=== PATIENT | female | born 1945 | race Two or more races ===

== ENCOUNTER 2018-01-16 13:33 | Outpatient (CLI) | payer OTHER ==
[~2018-01-16 13:33] MED LIST: COZAAR25 MG; Flagyl PO; LEVSIN0.125 MG PO; NORVASC2.5 M1; PEPCID40 MG PO; PROTONIX40 MG PO; SIMVASTATIN1 GM; VANCOCIN HCL; ZANTAC300 MG PO; ZOFRAN4 MG PO
== END 2018-01-16 13:36 | disposition home or self-care (01) ==
LOC: SONOGRAMA 13:33
DX: N18.3 Chronic kidney disease, stage 3 (moderate) (principal)

== ENCOUNTER 2018-03-27 16:16 | Emergency (ER) | payer OTHER ==
[~2018-03-27] VITALS: Ht 162.6 cm; Wt 60.3 kg
[2018-03-27] MEDS ORDERED: KETO10TA2 PO (19:18)
[2018-03-31] MEDS ORDERED: COZAAR100 MG (21:46)
[2018-03-31] MEDS ORDERED: ADDERALL 20 MG20 MG (21:46)
== END 2018-03-27 20:09 ==
LOC: ER 16:16
DX: S62.612A Displaced fracture of proximal phalanx of right middle finger, initial encounter for closed fracture (principal); W18.39XA Other fall on same level, initial encounter; Y93.89 Activity, other specified; Y92.89 Other specified places as the place of occurrence of the external cause; Y99.8 Other external cause status

== ENCOUNTER → 2018-03-31 | Emergency (ER) | payer OTHER ==
[~2018-03-31] VITALS: Ht 162.6 cm; Wt 60.3 kg
[~2018-03-31] MED LIST changes: +ADDERALL 20 MG20 MG; +COZAAR100 MG; +KETO10TA2 PO
== END | disposition left against medical advice (07) ==
LOC: ER 21:34
DX: Z53.20 Procedure and treatment not carried out because of patient's decision for unspecified reasons (principal)

== ENCOUNTER 2018-04-30 16:42 | Emergency (ER) | payer OTHER ==
[~2018-04-30] VITALS: Ht 157.5 cm; Wt 59.0 kg
== END 2018-04-30 22:16 | disposition home or self-care (01) ==
LOC: ER 16:42
DX: R42 Dizziness and giddiness (principal)

== ENCOUNTER 2018-06-30 13:50 | Outpatient (CLI) | payer OTHER | END 2018-06-30 13:53 | disposition home or self-care (01) | LOC: RAD 13:50 | DX: M54.5 Low back pain (principal); I70.0 Atherosclerosis of aorta ==

== ENCOUNTER 2018-12-23 11:43 | Outpatient (CLI) | payer OTHER | END 2018-12-27 11:47 | disposition home or self-care (01) | LOC: RX STUDY 11:43 | DX: K59.01 Slow transit constipation (principal) ==

== ENCOUNTER 2019-02-05 15:05 | Outpatient (CLI) | payer OTHER | END 2019-02-05 15:12 | disposition home or self-care (01) | LOC: MAMO-SONO 15:05 | DX: N64.4 Mastodynia (principal); Z12.31 Encounter for screening mammogram for malignant neoplasm of breast ==

== ENCOUNTER → 2019-08-04 | Outpatient (CLI) | payer OTHER | END | disposition home or self-care (01) | LOC: RAD 12:38 | DX: Z20.89 Contact with and (suspected) exposure to other communicable diseases (principal); J09.X2 Influenza due to identified novel influenza A virus with other respiratory manifestations ==

== ENCOUNTER 2019-08-06 11:37 | Outpatient (CLI) | payer OTHER | END 2019-08-06 11:45 | disposition home or self-care (01) | LOC: NUCLEAR 11:37 | PROVIDERS: ATTEND Internal Medicine | DX: M54.5 Low back pain (principal); E03.8 Other specified hypothyroidism; I10 Essential (primary) hypertension; E78.89 Other lipoprotein metabolism disorders; E11.51 Type 2 diabetes mellitus with diabetic peripheral angiopathy without gangrene; E55.9 Vitamin D deficiency, unspecified; E11.9 Type 2 diabetes mellitus without complications; R05 Cough; R50.9 Fever, unspecified; Z20.828 Contact with and (suspected) exposure to other viral communicable diseases; Z03.818 Encounter for observation for suspected exposure to other biological agents ruled out; K57.30 Diverticulosis of large intestine without perforation or abscess without bleeding ==

== ENCOUNTER 2019-11-11 08:28 | Outpatient (CLI) | payer OTHER | END 2019-11-11 08:43 | disposition home or self-care (01) | LOC: TOM 08:28 | PROVIDERS: ATTEND Internal Medicine Gastroenterology | DX: K57.30 Diverticulosis of large intestine without perforation or abscess without bleeding (principal); K58.1 Irritable bowel syndrome with constipation; K56.600 Partial intestinal obstruction, unspecified as to cause; Z86.010 Personal history of colon polyps ==

== ENCOUNTER 2020-04-14 14:44 | Outpatient (CLI) | payer OTHER | END 2020-04-14 15:06 | disposition home or self-care (01) | LOC: TOM 14:44 | PROVIDERS: ATTEND Internal Medicine Gastroenterology | DX: K44.9 Diaphragmatic hernia without obstruction or gangrene (principal); J98.11 Atelectasis; Z87.891 Personal history of nicotine dependence; R05 Cough ==

== ENCOUNTER → 2020-05-03 | Outpatient (CLI) | payer OTHER | END | disposition home or self-care (01) | LOC: TOM 11-04 08:15 → RAD 12:48 | PROVIDERS: ATTEND Orthopaedic Surgery | DX: M54.5 Low back pain (principal); M20.11 Hallux valgus (acquired), right foot; M20.12 Hallux valgus (acquired), left foot; M25.571 Pain in right ankle and joints of right foot; Z76.89 Persons encountering health services in other specified circumstances ==

== ENCOUNTER 2020-06-20 13:12 | Outpatient (CLI) | payer OTHER | END 2020-06-20 13:15 | disposition home or self-care (01) | LOC: NUCLEAR 13:12 | PROVIDERS: ATTEND Orthopaedic Surgery | DX: M81.0 Age-related osteoporosis without current pathological fracture (principal) ==

== ENCOUNTER 2020-07-26 17:25 | Emergency (ER) | payer OTHER ==
[~2020-07-26] VITALS: Ht 162.6 cm; Wt 63.5 kg
[2020-07-27] MEDS ORDERED: CIPRO500 MG PO (05:06)
[2020-07-27] MEDS ORDERED: LEVSIN/SL0.125 MG SL (05:06)
[2020-07-27] MEDS ORDERED: PHAZYME250 MG PO (05:06)
== END 2020-07-27 06:45 | disposition home or self-care (01) ==
LOC: ER 17:25
DX: N39.0 Urinary tract infection, site not specified (principal); B96.1 Klebsiella pneumoniae [K. pneumoniae] as the cause of diseases classified elsewhere; R10.32 Left lower quadrant pain

== ENCOUNTER 2020-08-03 14:00 | Emergency (ER) | payer OTHER ==
[~2020-08-03] VITALS: Ht 162.6 cm; Wt 63.5 kg
[~2020-08-03 14:00] MED LIST changes: +CIPRO500 MG PO; +LEVSIN/SL0.125 MG SL; +PHAZYME250 MG PO
[2020-08-03] MEDS ORDERED: METFORMIN HCL500 M4 PO (14:12)
[2020-08-03] MEDS ORDERED: OMEPRAZOLE40 MG PO (14:12)
[2020-08-03] MEDS ORDERED: LAMICTAL200 MG PO (14:12)
[2020-08-03] MEDS ORDERED: AMLODIPINE BESY10 MG PO (14:12)
[2020-08-03] MEDS ORDERED: CATAPRES0.3 MG PO (14:13)
== END 2020-08-03 21:30 | disposition home or self-care (01) ==
LOC: ER 14:00
DX: I95.89 Other hypotension (principal); E16.1 Other hypoglycemia; Z03.818 Encounter for observation for suspected exposure to other biological agents ruled out

== ENCOUNTER 2020-08-19 18:14 | Emergency (ER) | payer OTHER ==
[~2020-08-19] VITALS: Ht 162.6 cm; Wt 62.6 kg
[~2020-08-19 18:14] MED LIST changes: +AMLODIPINE BESY10 MG PO; +CATAPRES0.3 MG PO; +LAMICTAL200 MG PO; +METFORMIN HCL500 M4 PO; +OMEPRAZOLE40 MG PO
== END 2020-08-19 21:47 | disposition home or self-care (01) ==
LOC: ER 18:14
DX: I95.89 Other hypotension (principal); R42 Dizziness and giddiness

== ENCOUNTER 2022-02-06 15:10 | Emergency (ER) | payer OTHER ==
[~2022-02-06] VITALS: Ht 162.6 cm; Wt 63.5 kg
[2022-02-06] MEDS ORDERED: LITHIUM CARBON150 MG PO (15:35)
== END 2022-02-06 19:16 | disposition home or self-care (01) ==
LOC: ER 15:10
DX: R42 Dizziness and giddiness (principal); F32.9 Major depressive disorder, single episode, unspecified; I10 Essential (primary) hypertension; Z88.8 Allergy status to other drugs, medicaments and biological substances; Z88.1 Allergy status to other antibiotic agents

== ENCOUNTER 2022-06-22 09:39 | Emergency (ER) | payer OTHER ==
[~2022-06-22] VITALS: Ht 162.6 cm; Wt 61.2 kg
[~2022-06-22 09:39] MED LIST changes: +LITHIUM CARBON150 MG PO
[2022-06-22] MEDS ORDERED: BENZTROPINE ME0.5 MG (09:45)
[2022-06-22] MEDS ORDERED: DIVALPROEX SOD250 MG (09:45)
[2022-06-22] MEDS ORDERED: QUETIAPINE FUMA25 MG (09:45)
[2022-06-22] MEDS ORDERED: BUPROPION XL150 MG (09:46)
== END 2022-06-22 16:01 | disposition home or self-care (01) ==
LOC: ER 09:39
DX: R55 Syncope and collapse (principal); I10 Essential (primary) hypertension; J44.9 Chronic obstructive pulmonary disease, unspecified; F32.89 Other specified depressive episodes; K21.9 Gastro-esophageal reflux disease without esophagitis; Z88.8 Allergy status to other drugs, medicaments and biological substances

== ENCOUNTER 2022-07-05 14:53 | Inpatient (IN) | payer OTHER ==
[~2022-07-05] VITALS: Ht 162.6 cm; Wt 61.2 kg
[~2022-07-05 14:53] MED LIST changes: +BENZTROPINE ME0.5 MG; +BUPROPION XL150 MG; +DIVALPROEX SOD250 MG; +QUETIAPINE FUMA25 MG
--- NOTE | 2022-07-05 15:30 | NUR ---
SE RECIBE FEMINA ALERTA Y ORIENTADA EN AMBULANCIA ACOMPANADA POR PARAMEDICOS QUIENES REFIEREN PTE PRESENTA DEBILIDAD Y DOROTHY DOLOR ABDOMINAL. PTE SE OBSERVA PALIDA Y HABLANDO PESADO. SE MIDEN S/V. SE REALIZA EKG Y SE PRESENTA A DR MARQUEZ. SE COLOCA A PTE EN UNIDAD DE CRITICO.
--- NOTE | 2022-07-05 17:12 | NUR ---
PTE EVALUADO POR DR. DEUTSCH. SE ORIENTA PTE SOBRE TX A SEGUIR, EL CUAL REFIERE ENTENDER. SE COLECTAN MUESTRAS Y SE CANALIZA PTE UTILIZANDO MEDIDAS ASEPTICAS. PEND MUESTRA DE UA Y PEND CT ABD/PEL CON CONTRASTE PO. SE CONECTA A MONITOR CARDIACO Y OXIMETRIA DE PULSO CONTINUA.
[2022-07-06] MEDS ORDERED: ROSUVASTATIN CAL5 MG (11:01)
[2022-07-06] MEDS ORDERED: FAMOTIDINE40 MG (11:01)
[2022-07-06] MEDS ORDERED: OMEPRAZOLE40 MG (11:01)
[2022-07-06] MEDS ORDERED: VENLAFAXINE HC150 MG (11:01)
== END 2022-07-17 19:59 | disposition home or self-care (01) | DRG 371 ==
LOC: ER 14:53 → ICU-2 23:13 → MEDJ 23:13 → ICU 23:13 → MEDJ 07-07 14:05
PROVIDERS: ADMIT Internal Medicine; ATTEND Internal Medicine
PROC: BW21YZZ Computerized Tomography (CT Scan) of Abdomen and Pelvis using Other Contrast (ICD-10-PCS; principal; 2022-07-05)
PROC: 02HV33Z Insertion of Infusion Device into Superior Vena Cava, Percutaneous Approach (ICD-10-PCS; 2022-07-07)
PROC: 4A12X4Z Monitoring of Cardiac Electrical Activity, External Approach (ICD-10-PCS; 2022-07-07)
PROC: B24BZZZ Ultrasonography of Heart with Aorta (ICD-10-PCS; 2022-07-08)
PROC: BW21YZZ Computerized Tomography (CT Scan) of Abdomen and Pelvis using Other Contrast (ICD-10-PCS; 2022-07-09)
DX: A04.72 Enterocolitis due to Clostridium difficile, not specified as recurrent (principal); A41.9 Sepsis, unspecified organism; N17.9 Acute kidney failure, unspecified; K56.600 Partial intestinal obstruction, unspecified as to cause; I47.1 Supraventricular tachycardia; E87.20 Acidosis, unspecified; N39.0 Urinary tract infection, site not specified; E86.0 Dehydration; I12.9 Hypertensive chronic kidney disease with stage 1 through stage 4 chronic kidney disease, or unspecified chronic kidney disease; N18.9 Chronic kidney disease, unspecified; E87.6 Hypokalemia; K44.9 Diaphragmatic hernia without obstruction or gangrene

== ENCOUNTER 2022-07-22 16:54 | Inpatient (IN) | payer OTHER ==
[~2022-07-22] VITALS: Ht 162.6 cm; Wt 61.2 kg
[~2022-07-22 16:54] MED LIST changes: +FAMOTIDINE40 MG; +OMEPRAZOLE40 MG; +ROSUVASTATIN CAL5 MG; +VENLAFAXINE HC150 MG
--- NOTE | 2022-07-22 17:11 | NUR ---
SE RECIBE PACIENTE EN AMBULANCIA LA MISMA SE ENCUENTRA ALERTA Y ORIENTADA X3, PACIENTE VERBALIZA QUE ES TRASFERIDA DE SAMI Y ACEPTADA POR DR DEUTSCH CON DX DE CHF. AL MONITOREAR S/V SE OBSERVA PACIENTE CON DXT EN 42MG/DL. SE CANALIZA PACIENTE Y LE ADMINISTRA HIPERTONICA. DR PHILLIPS ORDENA UBICAR PACIENTE EN POLI Y CONECTAR A MONITOR CARDIACO, SE EJECUTA ORDEN MEDICA.
--- NOTE | 2022-07-22 17:44 | NUR ---
SE EJECUTA ORDEN MEDICA SE VANESSA MUESTRA BAJO MEDIDAS ASEPTICA SE CANALIZA, SE ORIENTA PTE/FAMILIAR SOBRE PROCEDIEMIENTO REALIZADOS PTE REFIERE ENTENDER. SE COLOCA SMILEY, SE OBSERVA PATENTE Y ELIMINADO COLOR AMARILLO INTENSO. SE KARSTEN POSION COMADA.
--- NOTE | 2022-07-22 20:55 | NUR ---
SE LE ORIENTA A PACIENTE A NO COMER NADA, PARA REALIZAR CT ABDOMINAL + PELVICO CON CONTRASTE PO, OLIVER VERBALIZA QUE TIENE QUE COMER Y NO SE VA SNEHA CONTRASTE PO.
[2022-07-23] MEDS ORDERED: LITHIUM CARBON150 MG (08:47)
[2022-08-08] MEDS ORDERED: AMLODIPINE BESY10 MG PO (06:42)
[2022-08-08] MEDS ORDERED: XOPENEX0.63 MG/3 IH (06:42)
[2022-08-08] MEDS ORDERED: HYOSCYAMINE0.125 M1 SL (06:42)
[2022-08-08] MEDS ORDERED: COZAAR50 MG PO (06:43)
[2022-08-08] MEDS ORDERED: LOPRESSOR25 MG PO (06:43)
[2022-08-08] MEDS ORDERED: CHOLESTYRAMINE L4 GM PO (06:43)
== END 2022-08-08 15:20 | DRG 291 ==
LOC: ER 16:54 → SURG 22:59 → SURH 08-03 14:52
PROVIDERS: ADMIT Internal Medicine; ATTEND Internal Medicine
PROC: BB24ZZZ Computerized Tomography (CT Scan) of Bilateral Lungs (ICD-10-PCS; principal; 2022-07-22)
PROC: BW28ZZZ Computerized Tomography (CT Scan) of Head (ICD-10-PCS; 2022-07-22)
PROC: BW21ZZZ Computerized Tomography (CT Scan) of Abdomen and Pelvis (ICD-10-PCS; 2022-07-22)
PROC: B246ZZZ Ultrasonography of Right and Left Heart (ICD-10-PCS; 2022-07-22)
PROC: 02HV33Z Insertion of Infusion Device into Superior Vena Cava, Percutaneous Approach (ICD-10-PCS; 2022-07-23)
PROC: 3E0F7GC Introduction of Other Therapeutic Substance into Respiratory Tract, Via Natural or Artificial Opening (ICD-10-PCS; 2022-07-23)
PROC: 30233N1 Transfusion of Nonautologous Red Blood Cells into Peripheral Vein, Percutaneous Approach (ICD-10-PCS; 2022-07-24)
PROC: BU4CZZZ Ultrasonography of Uterus and Ovaries (ICD-10-PCS; 2022-07-29)
PROC: 0W993ZZ Drainage of Right Pleural Cavity, Percutaneous Approach (ICD-10-PCS; 2022-07-31)
PROC: 0W9B3ZZ Drainage of Left Pleural Cavity, Percutaneous Approach (ICD-10-PCS; 2022-08-01)
PROC: BW3GZZZ Magnetic Resonance Imaging (MRI) of Pelvic Region (ICD-10-PCS; 2022-08-02)
DX: I13.0 Hypertensive heart and chronic kidney disease with heart failure and stage 1 through stage 4 chronic kidney disease, or unspecified chronic kidney disease (principal); J18.9 Pneumonia, unspecified organism; I24.9 Acute ischemic heart disease, unspecified; I50.30 Unspecified diastolic (congestive) heart failure; J90 Pleural effusion, not elsewhere classified; N39.0 Urinary tract infection, site not specified; I47.1 Supraventricular tachycardia; I11.0 Hypertensive heart disease with heart failure; K57.90 Diverticulosis of intestine, part unspecified, without perforation or abscess without bleeding; D64.9 Anemia, unspecified; D72.828 Other elevated white blood cell count; D50.0 Iron deficiency anemia secondary to blood loss (chronic); E11.22 Type 2 diabetes mellitus with diabetic chronic kidney disease; N18.9 Chronic kidney disease, unspecified; K21.9 Gastro-esophageal reflux disease without esophagitis; K52.89 Other specified noninfective gastroenteritis and colitis; R41.82 Altered mental status, unspecified; Z87.891 Personal history of nicotine dependence; D25.0 Submucous leiomyoma of uterus; E86.0 Dehydration
CPT/HCPCS: 72198

== ENCOUNTER 2022-08-13 13:00 | Inpatient (IN) | payer OTHER ==
[~2022-08-13] VITALS: Ht 162.6 cm; Wt 63.5 kg
[~2022-08-13 13:00] MED LIST changes: +CHOLESTYRAMINE L4 GM PO; +COZAAR50 MG PO; +HYOSCYAMINE0.125 M1 SL; +LITHIUM CARBON150 MG; +LOPRESSOR25 MG PO; +XOPENEX0.63 MG/3 IH
[2022-08-23] MEDS ORDERED: XOPENEX0.63 MG/3 IH (07:31)
[2022-08-23] MEDS ORDERED: LOVENOX40 MG/0.4 SUBCUTANEO (07:31)
[2022-08-23] MEDS ORDERED: HYOSCYAMINE0.125 M1 SL (07:31)
[2022-08-23] MEDS ORDERED: WELLBUTRIN SR150 MG PO (07:32)
[2022-08-23] MEDS ORDERED: COZAAR50 MG PO (07:32)
== END 2022-08-24 13:31 | disposition home or self-care (01) | DRG 872 ==
LOC: ER 13:00 → SURG 18:57 → SEC-K 18:57 → SURG 20:38
PROVIDERS: ADMIT Internal Medicine; ATTEND Internal Medicine
PROC: 02HV33Z Insertion of Infusion Device into Superior Vena Cava, Percutaneous Approach (ICD-10-PCS; 2022-08-14)
PROC: 4A12X4Z Monitoring of Cardiac Electrical Activity, External Approach (ICD-10-PCS; 2022-08-14)
PROC: 0W993ZZ Drainage of Right Pleural Cavity, Percutaneous Approach (ICD-10-PCS; principal; 2022-08-20)
DX: A41.9 Sepsis, unspecified organism (principal); N39.0 Urinary tract infection, site not specified; I50.30 Unspecified diastolic (congestive) heart failure; B96.5 Pseudomonas (aeruginosa) (mallei) (pseudomallei) as the cause of diseases classified elsewhere; B96.89 Other specified bacterial agents as the cause of diseases classified elsewhere; E86.0 Dehydration; R09.02 Hypoxemia; F32.9 Major depressive disorder, single episode, unspecified; Z74.01 Bed confinement status; I12.9 Hypertensive chronic kidney disease with stage 1 through stage 4 chronic kidney disease, or unspecified chronic kidney disease; E11.22 Type 2 diabetes mellitus with diabetic chronic kidney disease; N18.9 Chronic kidney disease, unspecified; Z79.4 Long term (current) use of insulin